=== PATIENT | female | born 1980 | race Caucasian/White ===

== ENCOUNTER → 2018-09-18 | Outpatient (CLI) | payer OTHER ==
[~2018-09-18] MED LIST: PREDNISONE10 MG PO; PROMETH-CODEIN 65 ML PO; SYNTHROID50 MCG PO; TESSALON PERLE100 M1 PO; ZITHROMAX500 MG PO
== END | disposition home or self-care (01) ==
LOC: LAB 06:00 → ADM 09:30 → CIR.AMB 09-26 07:00 → EDSTATUS 09-26 09:30 → CIR.AMB 09-26 09:30
DX: N92.1 Excessive and frequent menstruation with irregular cycle (principal); Z01.812 Encounter for preprocedural laboratory examination

== ENCOUNTER → 2018-09-26 | Emergency (ER) | payer OTHER ==
[~2018-09-26] VITALS: Ht 162.6 cm; Wt 52.2 kg
== END | disposition home or self-care (01) ==
LOC: ER 10:48
DX: J06.9 Acute upper respiratory infection, unspecified (principal)

== ENCOUNTER 2019-01-07 11:15 | Outpatient (CLI) | payer OTHER | END 2019-01-07 11:16 | disposition home or self-care (01) | LOC: MAMO-SONO 11:15 → SONOGRAMA 11:15 | DX: N92.0 Excessive and frequent menstruation with regular cycle (principal) ==

== ENCOUNTER → 2019-01-23 | Day surgery (SDC) | payer OTHER | END | disposition home or self-care (01) | LOC: EDSTATUS 01-21 14:30 → CIR.AMB 06:06 | DX: N84.0 Polyp of corpus uteri (principal) ==

== ENCOUNTER 2020-08-29 18:15 | Emergency (ER) | payer OTHER ==
[~2020-08-29] VITALS: Ht 162.6 cm; Wt 56.7 kg
[2020-08-29] MEDS ORDERED: KETO10TA2 PO (21:12)
== END 2020-08-29 21:19 | disposition home or self-care (01) ==
LOC: ER 18:15
DX: N83.292 Other ovarian cyst, left side (principal); N83.291 Other ovarian cyst, right side; R10.2 Pelvic and perineal pain

== ENCOUNTER 2020-09-02 09:29 | Outpatient (CLI) | payer OTHER ==
[~2020-09-02 09:29] MED LIST changes: +KETO10TA2 PO
== END 2020-09-02 09:39 | disposition home or self-care (01) ==
LOC: TOM 09:29
PROVIDERS: ATTEND Specialist
DX: R10.2 Pelvic and perineal pain (principal); M54.5 Low back pain